=== PATIENT | female | born 1930 | race Caucasian/White ===

== ENCOUNTER → 2016-12-12 | Outpatient (CLI) | payer MEDICARE, OTHER ==
[~2016-12-12] MED LIST: ASPIRIN81 MG PO; ATIVAN0.5 MG PO; AZOR 10-40 MG1 EACH PO; CARDURA4 MG PO; COQ-10100 MG PO; CRANBERRY405 MG PO; KLOR-CON M2020 MEQ PO; LABETALOL HCL200 MG PO; LIPITOR10 MG PO; LOTRIMIN AF28.35 GM TOP; LUTEIN1 GM PO; PREMARIN0.45 MG PO; PROTONIX40 MG PO; SEROQUEL50 MG PO; ULTRAM50 MG PO; VITAMIN D250000 UNIT PO; VITAMIN D350000 UNIT PO; VITAMIN E400 UNI2 PO
== END | disposition short-term general hospital (02) ==
LOC: CLCARD 10:06
DX: I48.92 Unspecified atrial flutter (principal); R06.02 Shortness of breath; E78.5 Hyperlipidemia, unspecified; I11.0 Hypertensive heart disease with heart failure; I50.32 Chronic diastolic (congestive) heart failure